=== PATIENT | male | born 1985 | race Two or more races ===

== ENCOUNTER 2018-12-05 22:31 | Emergency (ER) | payer BC ==
[~2018-12-05] VITALS: Ht 182.9 cm; Wt 78.8 kg
[2018-12-06 00:44] VITALS: BP 156/69
== END 2018-12-06 00:46 | disposition home or self-care (01) ==
LOC: ED 12-06 00:40
DX: K29.00 Acute gastritis without bleeding (principal); E05.90 Thyrotoxicosis, unspecified without thyrotoxic crisis or storm; Z87.891 Personal history of nicotine dependence
CPT/HCPCS: 36415; 74022; 76700; 80053; 83690; 85025; 96361; 96374; 96375; 99284; J1170; J2405; J7030

== ENCOUNTER 2019-03-24 03:35 | Emergency (ER) | payer SELFPAY ==
[~2019-03-24] VITALS: Ht 185.4 cm; Wt 89.2 kg
[2019-03-24 03:37] VITALS: BP 113/59
[2019-03-24] MEDS ORDERED: LORazepam 1MG TABLET ONE (04:49)
--- NOTE | 2019-03-24 04:53 | NUR ---
RN to bedside as patient first arrived. Patient reports difficulty sleeping and a history of thyroid disorder for which he is cared for by an photography sales associate. RN to bedside once patient had been assessed by a provider. Orders placed for medications. (given, see eMAR) and reviewed need for urinalysis. Patient reported having just recently been to the bathroom, but agreeable to attempting to try again. Reviewed clean catch instructions. Patient verbalized understanding. Ambulated with ease before anxiolytic reached full affect.
[2019-03-24] MEDS ORDERED: LORazepam 1MG TABLET PO ONE (05:00)
[2019-03-24 05:23] LABS: ALBUMIN 3.8 g/dL (3.4-5.0); ANION GAP 5 mmol/L (5-15); CALCIUM 8.7 mg/dL (8.5-10.1); CHLORIDE 108 mmol/L (98-107)
[2019-03-24 05:32] LABS: MICROSCOPIC NOT IND
[2019-03-24 05:39] LABS: BASOPHILS # (AUTO) 0.02 x10^3/uL (0-0.1); BASOPHILS % (AUTO) 0 % (0-1); EOSINOPHILS # (AUTO) 0.25 x10^3/uL (0-0.4); EOSINOPHILS % (AUTO) 3 % (1-7); LYMPHOCYTES # (AUTO) 3.69 x10^3/uL (1-3.4); LYMPHOCYTES % (AUTO) 44 % (22-44); MD NO; MEAN CORPUSCULAR HEMOGLOBIN 26.2 pg (27.5-34.5); MEAN CORPUSCULAR HGB CONC 32.7 g/dL (33.2-36.2); MEAN CORPUSCULAR VOLUME 80.2 fL (81-97); MEAN PLATELET VOLUME 8.1 fL (7.4-10.4); MONOCYTES # (AUTO) 0.39 x10^3/uL (0.2-0.8); MONOCYTES % (AUTO) 5 % (2-9); NEUTROPHILS % (AUTO) 49 % (42-75); PLATELET COUNT 249 x10^3/uL (130-400); RED BLOOD COUNT 5.64 x10^6/uL (4.38-5.82); RED CELL DISTRIBUTION WIDTH 15.8 % (9.4-14.8)
[2019-03-24 05:44] LABS: CULTURE INDICATED? NO
== END 2019-03-24 06:38 | disposition home or self-care (01) ==
LOC: ED 05:37
DX: F41.1 Generalized anxiety disorder (principal); E05.90 Thyrotoxicosis, unspecified without thyrotoxic crisis or storm
CPT/HCPCS: 36415; 71046; 80048; 81003; 82040; 85025; 93005; 99284